=== PATIENT | female | born 1955 | race Two or more races ===

== ENCOUNTER 2024-04-24 10:00 | Day surgery (SDC) | payer MEDICAID, SELFPAY ==
--- NOTE | 2024-04-23 07:29 | EKG_ITS ---
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
[2024-04-23 17:27] LABS: Collection Type, Urine Clean Catch
[2024-04-23 18:08] LABS: Basophils % (Auto) 0 % (0-2.5); Eosinophils # (Auto) 0.1 Thou/mm3 (0.0-0.5); Eosinophils % (Auto) 1 % (0-10); Hematocrit 43.2 % (36.0-46.0); Hemoglobin 14.7 g/dL (12.0-16.0); Immature Granulocytes % (Auto) 0 % (0-0); Immature Granulocytes Auto 0.02 Thou/mm3 (0.00-0.00); Lymphocytes # (Auto) 2.3 Thou/mm3 (1.0-4.8); Lymphocytes % (Auto) 31 % (10-50); Mean Corpuscular Hemoglobin 31.2 pg (25.0-35.0); Mean Corpuscular Volume 92 fL (80-100); Monocytes # (Auto) 0.5 Thou/mm3 (0.0-0.8); Monocytes % (Auto) 7 % (0-12); Neutrophils # (Auto) 4.7 Thou/mm3 (1.8-7.7); Neutrophils % (Auto) 62 % (37-80); Nucleated Red Blood Cell % 0 /100 WBC (0); Platelet Count 173 Thou/mm3 (140-440); RDW Standard Deviation 41.3 fL (36.4-46.3); Red Blood Count 4.71 Miln/mm3 (4.00-5.20); White Blood Count 7.6 Thou/mm3 (3.6-11.0)
[2024-04-23 18:12] LABS: Partial Thromboplastin Time 25.1 Seconds (22.0-36.0); Prothrombin Time 11.2 Seconds (9.0-12.2)
[2024-04-23 18:20] LABS: Alanine Aminotransferase 43 U/L (10-49); Albumin, Serum 4.7 gm/dL (3.4-4.8); Alkaline Phosphatase 174 U/L (46-116); Anion Gap 11 (7-16); Aspartate Amino Transferase 34 U/L (0-34); BUN/Creatinine Ratio 11 Ratio (12-20); Bilirubin,Total 0.9 mg/dL (0.3-1.2); Blood Urea Nitrogen 9 mg/dL (9-23); Calcium 9.2 mg/dL (8.3-10.6); Calcium (Corrected) 9.2 mg/dL (8.5-10.1); Carbon Dioxide 26.3 mMol/L (20.0-31.0); Chloride 105 mMol/L (98-107); Creatinine (Component) 0.8 mg/dL (0.6-1.3); Globulin 2.3 gm/dL (2.3-3.5); Glucose 108 mg/dL (74-106); Osmolality,Calculated 282 (275-295); Potassium 4.2 mMol/L (3.4-5.1); Sodium 142 mMol/L (136-145); eGFR > 60 See Note
[2024-04-23 18:32] LABS: Bacteria,Urine Rare; Bilirubin,Urine Negative (Negative); Blood,Urine Negative (Negative); Clarity,Urine Clear (Clear/Hazy); Color,Urine Colorless (Lt Yel-Yel); Glucose, Urine Negative (Negative); Ketones,Urine 1+ (Negative); Leukocyte Esterase,Urine Positive (Negative); Nitrite,Urine Negative (Negative); PH,Urine 6.5 (5.0-7.0); Protein,Urine Negative (Neg - Trace); RBC,Urine 1 /hpf (0-3); Specific Gravity,Urine 1.006 (1.001-1.035); Squamous Epithelial Cell,Urine < 1 /hpf (0-5); Urobilinogen,Urine Negative mg/dL (0.0-1.0); WBC,Urine 2 /hpf (0-5)
--- NOTE | 2024-04-23 22:16 | PD.SURHP ---
HPI Date of Admission 04/24/2024 Chief Complaint Chief Complaint: Needs screening colonoscopy HPI This 68 years old female never had colonoscopy. She is brought here for screening colonoscopy possible biopsy and polypectomy. Informed consent was obtained. Past Medical History Past Medical History CARDIAC: Positive Cardiac Disorders, Hypercholesterolemia and Hypertension; Negative Congestive Heart Failure RESPIRATORY: Negative Respiratory Disorders or Chronic Obstructive Pulmonary Disease (COPD) GENITOURINARY: Positive Genitourinary Disorders (bladder prolapse); Negative Renal Disease MUSCULOSKELETAL: Positive Musculoskeletal Disorders (mild thumb pain) ENDOCRINE: Positive Diabetes Mellitus Type 2 (prediabetes); Negative Diabetes Mellitus Type 1 Surgical History SURGICAL: Positive Tubal Ligation Social History SMOKING STATUS: Never smoker Travel History EBOLA RISK: No Meds Home Medications and Allergies Home Medications ?Medication ?Instructions ?Recorded ?Confirmed ?Type alendronate 70 mg tablet 70 mg PO QWEEK 04/23/24 04/23/24 History atorvastatin 80 mg tablet 80 mg PO QDAY 04/23/24 04/23/24 History lisinopril 10 mg tablet 10 mg PO QDAY 04/23/24 04/23/24 History Allergies Allergy/AdvReac Type Severity Reaction Status Date / Time No Known Allergies Allergy Unknown Uncoded 01/23/07 15:00 Exam Constitutional Constitutional: no acute distress Routine HEENT Exam Head: Present normocephalic Eye: Present EOMI and PERRL ENT: Present mucous membranes moist Routine Neck Exam Neck: Present supple and trachea midline Routine Chest/Breast/Axilla Exam Chest wall: Absent tenderness or mass Routine Respiratory Exam Respiratory: Present chest non-tender, lungs clear, normal breath sounds and no resp distress; Absent respiratory distress Routine Cardiovascular Exam Cardiovascular: Present RRR Routine Abdominal Exam Abdominal: Present soft and normoactive bowel sounds Routine Extremities Exam Extremities: Present full ROM Routine Skin Exam Skin: Present intact, dry and warm Routine Neurological Exam Neurological: Present alert, oriented X3 and CN II-XII intact Routine Psychiatric Exam Psychiatric: Present normal affect and normal thought process Results Results: Laboratory Laboratory results: results reviewed Assessment & Plan Problem List (1) Encounter for screening colonoscopy: Status: Acute Plan Screening colonoscopy possible biopsy possible polypectomy. Informed consent was obtained. Quality Measures Quality Measures none Advance care planning discussed with:: patient
[2024-04-24] VITALS (16 sets, daily range): BP systolic 78–129; BP diastolic 50–80; PULSE 73–110; RESP 12–21; TEMP 36.5–36.6; O2SAT 96–100; BMI 21.3
[2024-04-24] MEDS: ONDANSETRON INJ 2 MG/ML INJ 2 ML 4 MG IV (14:31)
[2024-04-24] MEDS: fentaNYL CIT INJ 50 mCg/ML AMP 2ML (ASD USE ONLY) IV (14:31)
[2024-04-24] MEDS: DiphenhydrAMINE INJ 50 MG/ML VIAL 25 MG IV (14:31)
[2024-04-24] MEDS: MIDAZOLAM INJ 1 MG/ML VIAL 2 ML (ASD USE ONLY) 2 MG IV (14:32)
== END 2024-04-24 15:47 | disposition home or self-care (01) ==
PROVIDERS: PCP Nurse Practitioner Family; Referring Provider Specialist; Visit Provider Specialist
PROC: 0DBE8ZX Excision of Large Intestine, Via Natural or Artificial Opening Endoscopic, Diagnostic (ICD-10-PCS; CPT 45380; principal; 2024-04-24 11:30)
DX: Z12.11 Encounter for screening for malignant neoplasm of colon (principal); E11.9 Type 2 diabetes mellitus without complications; E78.00 Pure hypercholesterolemia, unspecified; I10 Essential (primary) hypertension; Z01.810 Encounter for preprocedural cardiovascular examination; D12.5 Benign neoplasm of sigmoid colon; K64.9 Unspecified hemorrhoids
CPT/HCPCS: 45385; 36415; 80053; 81001; 85025; 85610; 85730; 93005; J1200; J2250; J2405; J3010